=== PATIENT | male | born 1995 | race Caucasian/White ===

== ENCOUNTER 2022-05-02 06:14 | Emergency (ER) | payer OTHER ==
[~2022-05-02] VITALS: Ht 177.8 cm; Wt 79.4 kg
[2022-05-02 06:35] VITALS: BP_SYST 151
--- NOTE | 2022-05-02 06:35 | NUR ---
Patient triaged and placed in waiting room. VSS and patient appears in no acute distress at this time. Accompanied by friend, awaiting available bed, and MD notified of need for MSE.
--- NOTE | 2022-05-02 07:00 | NUR ---
Patient to ER bed 8 to gown for evaluation. Side rails up. Report given to Day shift.
--- NOTE | 2022-05-02 07:15 | NUR ---
ER at bedside examining patient.
[2022-05-02 07:18] LABS: BASOPHILS # (AUTO) 0.1 K/uL (0.0-0.2); BASOPHILS % (AUTO) 1.2 % (0.0-2.0); EOSINOPHILS # (AUTO) 0.1 K/uL (0.0-0.4); EOSINOPHILS % (AUTO) 1.7 % (0.0-4.0); HEMATOCRIT 44.6 % (36-54); HEMOGLOBIN 15.8 g/dL (14.0-18.0); LYMPHOCYTES # (AUTO) 1.2 K/uL (1.0-5.5); LYMPHOCYTES % (AUTO) 18.8 % (20.5-51.5); MEAN CORPUSCULAR HEMOGLOBIN 31 pg (27-31); MEAN CORPUSCULAR HGB CONC 36 % (32-36); MEAN CORPUSCULAR VOLUME 86 fL (79.0-98.0); MONOCYTES # (AUTO) 0.6 K/uL (0.0-1.0); MONOCYTES % (AUTO) 9.3 % (1.7-9.3); NEUTROPHILS # (AUTO) 4.3 K/uL (1.8-7.7); PLATELET COUNT (AUTO) 230 K/uL (130-430); RED BLOOD CELL COUNT(AUTO) 5.16 MIL/uL (4.2-6.2); RED CELL DISTRIBUTION WIDTH 13.1 % (9.0-15.0); WHITE BLOOD COUNT (AUTO) 6.2 K/uL (4.8-10.8)
[2022-05-02 07:22] LABS: BILIRUBIN,URINE NEGATIVE (NEGATIVE); BLOOD, URINE NEGATIVE (NEGATIVE); CLARITY/URINE SL CLOUDY (CLEAR); COLOR,URINE YELLOW (YELLOW); GLUCOSE,URINE NEGATIVE (NEGATIVE); KETONES,URINE NEGATIVE (NEGATIVE); LEUKOCYTE ESTERASE ,URINE NEGATIVE (NEGATIVE); NITRITE, URINE NEGATIVE (NEGATIVE); PROTEIN URINE NEGATIVE (NEGATIVE); UROBILINOGEN,URINE 0.2 (0.2-1.0)
--- NOTE | 2022-05-02 07:23 | NUR ---
Assumed care of pt and pt is in bed resting with no s/s of distress. Pt is accompanied by friend. Pt is A&Ox4. NKA. No known medical conditions. VSS. Pt states he has abdominal pain 7/10 non-radiating. Denies n/v. No chest pain and no sob. Skin intact. Bed in lowest position.
[2022-05-02 07:27] LABS: ANION GAP 11 (5-15); CALCIUM 9.1 mg/dL (8.4-11.0); CHLORIDE 103 mmol/L (98-107); CREATININE 1.12 mg/dL (0.55-1.30); GLUCOSE 106 mg/dL (70-99); POTASSIUM 4.2 mmol/L (3.5-5.1); SODIUM SERUM 142 mmol/L (136-145); UREA NITROGEN, BLOOD 23 mg/dL (8-21)
[2022-05-02 07:31] LABS: GFR AFRICAN AMERICAN 100 mL/min (>90)
[2022-05-02 07:35] LABS: ALANINE AMINOTRANSFERASE 101 U/L (12-78); ALBUMIN 4.5 g/dL (3.4-4.8); AMYLASE 27 U/L (0-100); ASPARTATE AMINOTRANSFERASE 43 U/L (10-37); LACTATE DEHYDROGENASE 163 U/L (85-227); LIPASE 73 U/L (73-393)
[2022-05-02 07:37] LABS: C-REACTIVE PROTEIN QUANT < 0.2 mg/dL (0-0.5)
--- NOTE | 2022-05-02 07:41 | NUR ---
Pt refusing CT scan order due to not having insurance. Dr. Todd made aware.
--- NOTE | 2022-05-02 07:44 | NUR ---
Pt states he will be leaving against medical advice due to not having insurance to cover his care. Pt is A&Ox4. No IV in place. VSS. rates abdominal pain 5/10 non-radiating. Dr. Todd explained to pt the risks and consequences involved in leaving the hospital at this time as well as the benefits of continued treatment and hospitalization. Pt verbalized understanding with no further questions and will still be leaving AMA.
[2022-05-02] MEDS ORDERED: TRAM50TA2 PO (07:48)
[2022-05-02] MEDS ORDERED: OMEP20CA15 PO (07:48)
--- NOTE | 2022-05-02 07:55 | NUR ---
Patient does not wish to proceed with medical care recommended by Dr. Todd. Patient given information related to possible complications, up to and including , which could occur as a result of leaving hospital at this time. Patient verbalizes understanding of risks involved leaving against medical advice. Patient has signed AMA form.
[2022-05-02 08:01] VITALS: BP_SYST 124
== END 2022-05-02 07:55 | disposition home or self-care (01) ==
LOC: SED 06:14
DX: K29.70 Gastritis, unspecified, without bleeding (principal)
CPT/HCPCS: 36415; 80053; 81003; 82150; 83605; 83615; 83690; 84484; 85025; 86140; 99283